=== PATIENT | female | born 1940 | race Caucasian/White ===

== ENCOUNTER 2017-10-29 07:41 | Inpatient (IN) | payer MEDICARE, OTHER ==
[2017-10-23 11:44] LABS: BASOPHILS % (AUTO) 0.4 % (0-1); EOSINOPHILS # (AUTO) 0.1 X10'3 (0-0.9); EOSINOPHILS % (AUTO) 1.3 % (0-6); LYMPHOCYTES # (AUTO) 1.6 X10'3 (1.1-4.8); LYMPHOCYTES % (AUTO) 15.6 % (21-51); MEAN CORPUSCULAR HEMOGLOBIN 34.4 PG (27.0-31.0); MEAN CORPUSCULAR HGB CONC 34.5 % (33.0-36.5); MEAN CORPUSCULAR VOLUME 99.8 FL (78-98); MEAN PLATELET VOLUME 9.2 FL (7.4-10.4); MONOCYTES # (AUTO) 1.1 X10'3 (0-0.9); MONOCYTES % (AUTO) 10.6 % (2-12); NEUTROPHILS # (AUTO) 7.4 X10'3 (1.8-7.7); NEUTROPHILS % (AUTO) 72.1 % (42-75); PRE OP HEMATOCRIT 44.3 % (35.0-45.0); PRE OP HEMOGLOBIN 15.3 g/dL (12.0-16.0); PRE OP PLATELET COUNT 244 X10'3 (140-440); RED BLOOD COUNT 4.44 X10'6 (4.20-5.60); RED CELL DISTRIBUTION WIDTH 13.2 % (11.5-14.5)
[2017-10-23 11:53] LABS: CLARITY,URINE SLIGHTLY CLOUDY (Clear); COLOR,URINE YELLOW (Yellow); GLUCOSE, URINE NEGATIVE (Neg); KETONES,URINE TRACE mg/dl (Neg); LEUKOCYTE ESTERASE ,URINE MODERATE (Neg); NITRITES, URINE NEGATIVE (Neg); OCCULT BLOOD,URINE SMALL (Neg); PROTEIN,URINE NEGATIVE (Neg); UROBILINOGEN,URINE 0.2 E.U/dL (0.2-1.0)
[2017-10-23 11:59] LABS: ALBUMIN 4.1 G/DL (3.4-5.0); ALBUMIN/GLOBULIN RATIO 1.2 (1.1-1.5); ALKALINE PHOSPHATASE 95 IU/L (46-116); BLOOD UREA NITROGEN 18 MG/DL (7-18); BUN/CREATININE RATIO 22.8 (6.6-38.0); CALCIUM 9.4 MG/DL (8.5-10.1); CHLORIDE 102 MMOL/L (99-107); CREATININE 0.79 MG/DL (0.40-0.90); PRE OP ALT 28 U/L (30-65); PRE OP ANION GAP 7 (8-16); PRE OP AST 25 U/L (10-37); PRE OP BILIRUB, TOTAL 0.4 MG/DL (0.0-1.0); PRE OP GLUCOSE 80 MG/DL (70-104); PRE OP POTASSIUM 4.5 MMOL/L (3.4-5.1); PRE OP SODIUM 135 MMOL/L (135-145); TOTAL CARBON DIOXIDE 26.5 MMOL/L (24-32); TOTAL PROTEIN 7.5 G/DL (6.4-8.2); eGFR 71 ML/MIN
[2017-10-23 12:00] LABS: UA COLLECTION TYPE CLN CATCH MIDSTREAM
[2017-10-23 12:01] LABS: BACTERIA,URINE 1+ /HPF (Neg); MUCUS STRANDS MODERATE /LPF (Neg); SQUAMOUS EPITHELIAL CELL,UR MODERATE /LPF (FEW); TRANSITIONAL EPI CELLS,URINE FEW /HPF
[2017-10-29] VITALS (19 sets, daily range): BP systolic 94–148; BP diastolic 47–90
[~2017-10-29] VITALS: Ht 170.2 cm; Wt 86.0 kg
[~2017-10-29 07:41] MED LIST: ASPI-1265 PO; DILT120C51 PO; acetaminophen 325mg tablet PO ONE; ceFAZolin 2gm in dextrose, iso 100 ML IV ONE; celeCOXIB 100mg capsule PO ONE; famotidine 20mg tablet PO ONE; gabapentin 300mg capsule PO ONE; metoclopramide 5 mg/ml inj IV ONE; oxyCODONE SR 10mg (sust. release) tab PO ONE; ringers solution, lacted 1,000 ML IV SCH; vancomycin inj 1,500 MG in normal saline 300ml IV soln IV ONE
[2017-10-29] MEDS ORDERED: LIDOcaine 1% (10mg/ml) 2ml vial ONE (08:34)
[2017-10-29] MEDS ORDERED: ondansetron/PF 4mg/2ml inj IV PRN ×2 (10:15→12:00)
[2017-10-29] MEDS ORDERED: MORPHINE 2MG in 2ml NS syringe IV PRN (10:15)
[2017-10-29] MEDS ORDERED: oxyCODONE/APAP 10/325mg tablet PO PRN (10:15)
[2017-10-29] MEDS ORDERED: diphenhydrAMINE 25mg capsule PO PRN ×2 (10:15)
[2017-10-29] MEDS ORDERED: acetaminophen 325mg tablet PO PRN (10:15)
[2017-10-29] MEDS ORDERED: bisacodyl 10mg suppository rectal RC PRN (10:15)
[2017-10-29] MEDS ORDERED: magnesium hydroxide 30ml (MOM) UD suspension PO PRN (10:15)
[2017-10-29] MEDS ORDERED: desflurane 240ml liquid inh. IH ONE (10:45)
[2017-10-29] MEDS ORDERED: tranexamic acid inj. 1,000 MG in normal saline 100ml IV soln 90 ML IV ONE (10:50)
[2017-10-29] MEDS ORDERED: midazolam 2 mg/2 ml injection ONE (10:57)
[2017-10-29] MEDS ORDERED: morphine /PF 1mg/ml 10ml inj. ONE (10:58)
[2017-10-29] MEDS ORDERED: BUPIVAcaine/dex-water/PF 7.5 mg/ml 2ml ampul ONE (10:58)
[2017-10-29] MEDS ORDERED: cloNIDine hcl/PF 100mcg/ml inj ONE (11:46)
[2017-10-29] MEDS ORDERED: epiNEPHrine 1 mg/ml inj ONE (11:46)
[2017-10-29] MEDS ORDERED: ketorolac trometh. 30mg/ml inj. ONE (11:46)
[2017-10-29] MEDS ORDERED: vancomycin 1,000mg inj ONE (11:46)
[2017-10-29] MEDS ORDERED: ROPIVAcaine 0.5% (5mg/ml) 30ml vial ONE (11:47)
[2017-10-29] MEDS ORDERED: ringers solution, lacted 1,000 ML IV SCH (11:58)
[2017-10-29] MEDS ORDERED: naloxone 2mg/2ml inj 1.8 MG in normal saline 500ml IV soln 500 ML IV SCH (11:58)
[2017-10-29] MEDS ORDERED: morphine 4 MG/ML inj SYRINge IV PRN ×2 (12:00)
[2017-10-29] MEDS ORDERED: diphenhydrAMINE 50 mg/ml inj IV PRN (12:00)
[2017-10-29] MEDS ORDERED: proCHLORperazine 10 MG/2 ml inj IV PRN (12:00)
[2017-10-29] MEDS ORDERED: meperidine/PF 50mg/ml syringe IV PRN ×3 (12:00)
[2017-10-29] MEDS ORDERED: ondansetron/PF 4mg/2ml inj IV ONE (12:00)
[2017-10-29] MEDS ORDERED: naloxone 2mg/2ml inj 1.8 MG in normal saline 500ml IV soln 500 ML IV PRN (12:32)
[2017-10-29] MEDS ORDERED: ePHEDrine 50MG/ML INJ. ONE (12:39)
[2017-10-29] MEDS ORDERED: propofol inj 20 ML IV ONE (12:39)
[2017-10-29] MEDS: gabapentin 300mg capsule PO SCH ×2 (13:00→20:25)
[2017-10-29] MEDS: ceFAZolin 2gm in dextrose, iso 100 ML IV SCH ×2 (16:11→23:27)
[2017-10-29] MEDS: potassium cl 20mEq in 1/2 NS 1,000 ML IV SCH (16:12)
[2017-10-29] MEDS: sennosides 8.6mg tablet PO SCH (20:25)
[2017-10-29] MEDS: ascorbic acid 500mg tablet PO SCH (20:26)
[2017-10-30] MEDS: potassium cl 20mEq in 1/2 NS 1,000 ML IV SCH (00:18)
[2017-10-30 02:11] VITALS: BP 102/69
[2017-10-30] MEDS: oxyCODONE/APAP 10/325mg tablet PO PRN ×4 (02:45→17:32)
[2017-10-30 05:52] LABS: BASOPHILS % (AUTO) 0.4 % (0-1); EOSINOPHILS # (AUTO) 0.2 X10'3 (0-0.9); EOSINOPHILS % (AUTO) 2.1 % (0-6); HEMATOCRIT 34.8 % (35.0-45.0); HEMOGLOBIN 11.9 g/dl (12.0-16.0); LYMPHOCYTES # (AUTO) 1.3 X10'3 (1.1-4.8); MEAN CORPUSCULAR HGB CONC 34.2 % (33.0-36.5); MEAN CORPUSCULAR VOLUME 99.4 FL (78-98); MEAN PLATELET VOLUME 8.8 FL (7.4-10.4); MONOCYTES # (AUTO) 1.2 X10'3 (0-0.9); MONOCYTES % (AUTO) 10.8 % (2-12); NEUTROPHILS % (AUTO) 74.7 % (42-75); PLATELET COUNT 229 X10'3 (140-440); RED CELL DISTRIBUTION WIDTH 13.1 % (11.5-14.5); WHITE BLOOD COUNT 10.8 X10'3 (4.5-11.0)
[2017-10-30 06:00] VITALS: BP 104/63
[2017-10-30 06:33] LABS: ANION GAP 7 (8-16); CHLORIDE 101 MMOL/L (99-107); POTASSIUM 4.8 MMOL/L (3.5-5.1); SODIUM 134 MMOL/L (135-145); TOTAL CARBON DIOXIDE 26.5 MMOL/L (24-32)
[2017-10-30] MEDS: multivitamins, therapeutics tablet PO SCH (09:04)
[2017-10-30] MEDS: aspirin 325mg tablet PO SCH (09:04)
[2017-10-30] MEDS: ascorbic acid 500mg tablet PO SCH ×2 (09:05→21:56)
[2017-10-30] MEDS: diltiazem CD 180mg cap (once-daily) PO SCH (09:05)
[2017-10-30] MEDS: gabapentin 300mg capsule PO SCH ×3 (09:05→21:56)
[2017-10-30 10:00] VITALS: BP 103/44
[2017-10-30 14:00] VITALS: BP 102/56
[2017-10-30] MEDS ORDERED: Protein Smoothie (high protein) 240ml (8oz) cup PO SCH (18:00)
[2017-10-30 19:13] VITALS: BP 134/82
[2017-10-30] MEDS: sennosides 8.6mg tablet PO SCH (21:56)
[2017-10-30 22:13] VITALS: BP 145/62
[2017-10-31] MEDS: oxyCODONE/APAP 10/325mg tablet PO PRN ×2 (03:33→10:42)
[2017-10-31 05:00] VITALS: BP 106/48
[2017-10-31 06:05] LABS: BASOPHILS # (AUTO) 0.1 X10'3 (0-0.2); BASOPHILS % (AUTO) 0.5 % (0-1); EOSINOPHILS # (AUTO) 0.2 X10'3 (0-0.9); EOSINOPHILS % (AUTO) 1.6 % (0-6); HEMATOCRIT 33.2 % (35.0-45.0); HEMOGLOBIN 11.3 g/dl (12.0-16.0); LYMPHOCYTES # (AUTO) 0.8 X10'3 (1.1-4.8); LYMPHOCYTES % (AUTO) 6.3 % (21-51); MEAN CORPUSCULAR HEMOGLOBIN 33.9 PG (27.0-31.0); MEAN CORPUSCULAR HGB CONC 34.1 % (33.0-36.5); MEAN CORPUSCULAR VOLUME 99.2 FL (78-98); MEAN PLATELET VOLUME 8.6 FL (7.4-10.4); MONOCYTES # (AUTO) 1.6 X10'3 (0-0.9); NEUTROPHILS # (AUTO) 9.6 X10'3 (1.8-7.7); NEUTROPHILS % (AUTO) 78.6 % (42-75); PLATELET COUNT 209 X10'3 (140-440); RED BLOOD COUNT 3.35 X10'6 (4.20-5.60); RED CELL DISTRIBUTION WIDTH 13.1 % (11.5-14.5); WHITE BLOOD COUNT 12.2 X10'3 (4.5-11.0)
[2017-10-31] MEDS ORDERED: ASPI-1 PO (06:46)
[2017-10-31] MEDS: gabapentin 300mg capsule PO SCH (07:27)
[2017-10-31] MEDS: multivitamins, therapeutics tablet PO SCH (07:27)
[2017-10-31] MEDS: ascorbic acid 500mg tablet PO SCH (07:27)
[2017-10-31] MEDS: aspirin 325mg tablet PO SCH (07:27)
[2017-10-31] MEDS: diltiazem CD 180mg cap (once-daily) PO SCH (07:27)
[2017-10-31 09:57] VITALS: BP 137/55
== END 2017-10-31 12:10 | disposition home or self-care (01) | DRG 470 ==
LOC: PAS IN 07:41 → EDSTATUS 10:15 → ORTHO 4S 14:30
PROVIDERS: ADMIT Orthopaedic Surgery; ATTEND Orthopaedic Surgery
PROC: 0SR906Z Replacement of Right Hip Joint with Oxidized Zirconium on Polyethylene Synthetic Substitute, Open Approach (ICD-10-PCS; principal; 2017-10-29 10:45)
DX: M16.11 Unilateral primary osteoarthritis, right hip (principal); I48.91 Unspecified atrial fibrillation; D62 Acute posthemorrhagic anemia; I10 Essential (primary) hypertension; M25.751 Osteophyte, right hip; Z88.8 Allergy status to other drugs, medicaments and biological substances; Z79.899 Other long term (current) drug therapy; Z79.82 Long term (current) use of aspirin; Z82.49 Family history of ischemic heart disease and other diseases of the circulatory system; Z80.1 Family history of malignant neoplasm of trachea, bronchus and lung
CPT/HCPCS: 36415; 71046; 72170; 80051; 80053; 81001; 85025; 86885; 86900; 86901; 87070; 87088; 97110; 97116; 97162; 97530; A4615; A7000; C1758; C1776; J0171; J0690; J0735; J1885; J2250; J2274; J2310; J2405; J2704; J2765; J2795; J3370; J3490; J7030; J7120